=== PATIENT | female | born 1950 | race Caucasian/White ===

== ENCOUNTER → 2016-11-04 | Outpatient (CLI) | payer OTHER, MEDICAID ==
[2016-11-04 12:04] LABS: ALBUMIN 3.7 g/dL (3.4-5.0); BILIRUBIN,DIRECT 0.09 mg/dL (0-0.2); TOTAL PROTEIN 7.2 g/dL (6.4-8.2)
[2016-11-04 12:19] LABS: CRYPTOSPORIDIUM PARVUM ANTIGEN NEGATIVE (NEGATIVE); GIARDIA LAMBLIA ANTIGEN NEGATIVE (NEGATIVE)
== END ==
LOC: LAB 11:08
PROVIDERS: ATTEND Internal Medicine Gastroenterology
DX: K59.1 Functional diarrhea (principal); R10.11 Right upper quadrant pain
CPT/HCPCS: 36415; 80076; 82705; 87045; 87205; 87328; 87329; 87336; 87427; 87493; 87899

== ENCOUNTER 2016-11-07 10:47 | Day surgery (SDC) | payer OTHER, MEDICAID ==
[2016-11-07] MEDS ORDERED: D5 LR 1000 ML 1,000 ML IV ONE (10:55)
[2016-11-07] MEDS ORDERED: DIPRIVAN VIAL 20 ML ONE (11:37)
[2016-11-07 11:59] VITALS: BP 128/66
== END 2016-11-07 12:00 | disposition home or self-care (01) ==
LOC: SURG1 10:47
PROVIDERS: ATTEND Internal Medicine Gastroenterology
PROC: 0DB88ZX Excision of Small Intestine, Via Natural or Artificial Opening Endoscopic, Diagnostic (ICD-10-PCS; principal; 2016-11-07 15:30)
PROC: 0DB38ZX Excision of Lower Esophagus, Via Natural or Artificial Opening Endoscopic, Diagnostic (ICD-10-PCS; principal; 2016-11-07 15:30)
PROC: 0DJ08ZZ Inspection of Upper Intestinal Tract, Via Natural or Artificial Opening Endoscopic (ICD-10-PCS; principal; 2016-11-07 15:30)
PROC: 0D757ZZ Dilation of Esophagus, Via Natural or Artificial Opening (ICD-10-PCS; principal; 2016-11-07 15:30)
PROC: 0DB68ZX Excision of Stomach, Via Natural or Artificial Opening Endoscopic, Diagnostic (ICD-10-PCS; principal; 2016-11-07 15:30)
DX: R13.19 Other dysphagia (principal); R10.13 Epigastric pain; R07.89 Other chest pain; K21.9 Gastro-esophageal reflux disease without esophagitis; Z87.19 Personal history of other diseases of the digestive system; K20.8 Other esophagitis; K22.4 Dyskinesia of esophagus; K22.2 Esophageal obstruction; K44.9 Diaphragmatic hernia without obstruction or gangrene; K29.60 Other gastritis without bleeding; R10.11 Right upper quadrant pain
CPT/HCPCS: A4217; J3490; J7120